=== PATIENT | male | born 1960 ===

== ENCOUNTER 2018-11-20 22:50 | Emergency (ER) | payer SELFPAY ==
[2018-11-20 22:50] VITALS: BMI 26.4
[2018-11-20 23:14] VITALS: BP 138/73; PULSE 76; RESP 16; TEMP 97.9; O2SAT 96
[2018-11-21] MEDS ORDERED: Promethazine/Cod 6.25mg-10mg/5ml Syr UD PO STA (00:48)
[2018-11-21] MEDS ORDERED: Albuterol-Ipratrop 3 mg / 0.5 (3 ml) UD INH STA (00:48)
--- NOTE | 2018-11-21 01:13 | ED PDOC ---
HPI: CCC, URI, Sore Throat Time Seen by Provider: 11/21/18 00:00 Chief Complaint (Nursing): Cough, Cold, Congestion Chief Complaint (Provider): Cough History Per: Patient History/Exam Limitations: no limitations Onset/Duration Of Symptoms: Days (x 5) Current Symptoms Are (Timing): Still Present Location Of Pain: None Associated Symptoms: Cough Additional Complaint(s): 58 year old male with a history of diabetes presents to the ED with a cough and shortness of breath for five days. Patient was treated at [facility] and discharged with Zithromax, cough syrup and Tylenol. Patient has since completed full course of antibiotics. He continues to report that the cough is dry and hacking. Cough keeps patient awake at night. Denies fever, chills and other complaints. PMD: [facility] Past Medical History Reviewed: Historical Data, Nursing Documentation, Vital Signs Vital Signs: Last Vital Signs Temp 97.9 F 11/20/18 23:14 Pulse 76 11/20/18 23:14 Resp 16 11/20/18 23:14 BP 138/73 11/20/18 23:14 Pulse Ox 96 11/20/18 23:14 - Medical History PMH: Diabetes, HTN, Hypercholesterolemia Denies: HIV, Chronic Kidney Disease - Surgical History Surgical History: No Surg Hx - Family History Family History: States: Diabetes - Home Medications Home Medications: Ambulatory Orders Medication Instructions Recorded Atorvastatin Calcium [Lipitor] 40 mg PO HS 06/07/15 Ciprofloxacin HCl [Cipro] 500 mg PO BID #14 tablet 07/06/16 GlipiZIDE SR [Glucotrol XL] 5 mg PO DAILY #30 tab 07/06/16 Metronidazole [Flagyl] 500 mg PO TID #21 tablet 07/06/16 Amoxicillin/Clavulanate [Augmentin 1 tab PO BID #14 tab 08/10/16 875 MG-125 MG] Ibuprofen [Motrin] 600 mg PO Q6 #20 tab 08/10/16 Methylprednisolone [Medrol Dose 4 mg PO DAILY #21 mg 08/10/16 Pack (21 tabs)] Amoxicillin/Clavulanate [Augmentin 1 tab PO BID #14 tab 08/27/16 875 MG-125 MG] Methylprednisolone [Medrol Dose 4 mg PO DAILY #21 mg 08/27/16 Pack (21 tabs)] Albuterol HFA [Ventolin HFA 90 1 - 2 puff IH Q6 PRN #1 inhaler 11/21/18 mcg/actuation (8 g)] Benzonatate [Tessalon Perle] 100 mg PO TID PRN #15 capsule 11/21/18 Methylprednisolone [Medrol Dosepak] 4 mg PO ASDIR #1 pkg 11/21/18 levoFLOXacin [Levaquin] 500 mg PO DAILY #10 tab 11/21/18 - Allergies Allergies/Adverse Reactions: Allergies Allergy/AdvReac Type Severity Reaction Status Date / Time No Known Allergies Allergy Verified 08/27/16 10:58 Review of Systems ROS Statement: Except As Marked, All Systems Reviewed And Found Negative Constitutional: Negative for: Fever, Chills Cardiovascular: Negative for: Chest Pain Respiratory: Positive for: Cough, Shortness of Breath. Negative for: Hemoptysis, Sputum Physical Exam - Reviewed Nursing Documentation Reviewed: Yes Vital Signs Reviewed: Yes - Physical Exam Appears: Positive for: Non-toxic, No Acute Distress, Uncomfortable Head Exam: Positive for: ATRAUMATIC, NORMAL INSPECTION, NORMOCEPHALIC Skin: Positive for: Normal Color, Warm, Dry Eye Exam: Positive for: EOMI, Normal appearance, PERRL ENT: Positive for: Normal ENT Inspection Neck: Positive for: Normal, Painless ROM, Supple Cardiovascular/Chest: Positive for: Regular Rate, Rhythm. Negative for: Murmur Respiratory: Positive for: Wheezing (bilateral expiratory wheezing). Negative for: Respiratory Distress Gastrointestinal/Abdominal: Positive for: Normal Exam, Soft. Negative for: Tenderness Back: Positive for: Normal Inspection. Negative for: L CVA Tenderness, R CVA Tenderness Extremity: Positive for: Normal ROM (x 4). Negative for: Deformity Neurologic/Psych: Positive for: Alert, Oriented (x 3). Negative for: Motor/Sensory Deficits - Laboratory Results Result Diagrams: 11/21/18 01:00 11/21/18 02:20 - ECG O2 Sat by Pulse Oximetry: 96 (RA) Pulse Ox Interpretation: Normal - Radiology X-Ray: Interpreted by Me, Viewed By Me X-Ray Interpretation: No Acute Disease Medical Decision Making Medical Decision Makin:47 Impression: 58 year old male with persistent cough in setting of recent completion of antibiotics Initial Plan: --EKG --CBC --CMP --CXR --Lactic Acid --Phenergan/Codeine Oral Syrup 10 ml PO --Duoneb 3 ml INH --Peak flow pre/post 0305 Labs reviewed and reveal no clinically significant findings. Patient reports improvement of symptoms and is stable for discharge. Diagnosis is bronchitis. Scribe Attestation: Documented by Yaquelin Fairbanks acting as a scribe for Renato Armstrong MD Provider Scribe Attestation: All medical record entries made by the Scribe were at my direction and personally dictated by me. I have reviewed the chart and agree that the record accurately reflects my personal performance of the history, physical exam, medical decision making, and the department course for this patient. I have also personally directed, reviewed, and agree with the discharge instructions and disposition. Disposition - Clinical Impression Clinical Impression: Bronchitis - Patient ED Disposition Is Patient to be Admitted: No - Disposition Disposition: Routine/Home Disposition Time: 03:05 Condition: STABLE Prescriptions: Albuterol HFA [Ventolin HFA 90 mcg/actuation (8 g)] 1 - 2 puff IH Q6 PRN #1 inhaler PRN Reason: Shortness Of Breath Benzonatate [Tessalon Perle] 100 mg PO TID PRN #15 capsule PRN Reason: Cough levoFLOXacin [Levaquin] 500 mg PO DAILY #10 tab Methylprednisolone [Medrol Dosepak] 4 mg PO ASDIR #1 pkg Instructions: Acute Bronchitis Forms: [employer] (Nepali) Print Language: CROATIAN
[2018-11-21 02:07] LABS: BASO % 0.4 % (0.0-2.0); EOS % 0.7 % (0.0-4.0); LYMPH # 1.6 K/uL (1.0-4.3); LYMPH % 32.5 % (20.0-40.0); MEAN CELL VOLUME 89.5 fl (80.0-94.0); MEAN CORPUSCULAR HEMOGLOBIN 30.8 pg (27.0-31.0); MEAN CORPUSCULAR HGB CONC 34.3 g/dL (33.0-37.0); MEAN PLATELET VOLUME 8.6 fl (7.2-11.7); MONO # 0.5 K/uL (0.0-0.8); MONO % 9.5 % (0.0-10.0); NEUT # 2.8 K/uL (1.8-7.0); NEUT % 56.9 % (50.0-75.0); RBC 4.56 Mil/uL (4.40-5.90); RED CELL DISTRIBUTION WIDTH 13.3 % (11.5-14.5); WHITE BLOOD COUNT 4.9 K/uL (4.8-10.8)
[2018-11-21 02:58] LABS: ALB/GLOB RATIO 1.4 (1.0-2.1); ALBUMIN 3.8 g/dL (3.5-5.0); ALT/SGPT 71 U/L (21-72); AST/SGOT 60 U/L (17-59); BLOOD UREA NITROGEN 14 mg/dl (9-20); CALCIUM 8.8 mg/dL (8.4-10.2); GFR NON-AFRICAN AMERICAN > 60
--- NOTE | 2018-11-21 12:22 | CARD ---
APPROVED REPORT Date of service: 11/21/2018 EKG Measurement Heart [id number] <Conclusion> Normal sinus rhythm Nonspecific ST and T wave abnormality Abnormal ECG
--- NOTE | 2018-11-21 13:00 | RAD ---
Date of service: 11/21/2018 HISTORY: admit COMPARISON: 07/06/2016 TECHNIQUE: Chest PA and lateral FINDINGS: LUNGS: No active pulmonary disease. PLEURA: No significant pleural effusion identified. No pneumothorax apparent. CARDIOVASCULAR: No aortic atherosclerotic calcification present. Normal cardiac size. No pulmonary vascular congestion. OSSEOUS STRUCTURES: No significant abnormalities. VISUALIZED UPPER ABDOMEN: Normal. OTHER FINDINGS: None. IMPRESSION: No active disease. No significant interval change compared to the prior examination(s).
== END 2018-11-21 03:22 | disposition home or self-care (01) ==
LOC: H.ER 22:50
DX: J40 Bronchitis, not specified as acute or chronic (principal); E11.9 Type 2 diabetes mellitus without complications; E78.00 Pure hypercholesterolemia, unspecified; I10 Essential (primary) hypertension; Z79.84 Long term (current) use of oral hypoglycemic drugs
CPT/HCPCS: 71046; 80053; 83605; 85025; 87040; 93005; 94640; 96374; 99283; J2930